=== PATIENT | female | born 1990 | race Caucasian/White ===

== ENCOUNTER 2018-07-13 12:25 | Emergency (ER) | payer OTHER ==
--- NOTE | 2018-07-13 12:49 | ER Document Report ---
ED Medical Screen (RME) - General Chief Complaint: Numbness Stated Complaint: DIZZINESS,NUMBNESS IN HEAD AND SHOULDERS Time Seen by Provider: 07/13/18 12:44 Mode of Arrival: Ambulatory Information source: Patient, [facility] Records Notes: 28-year-old female presents with complaint of dizziness, bilateral hand numbness. Patient was seen at urgent care and told that she had an abnormal EKG. She was also started told that there was concern for hyperkalemia. I have greeted and performed a rapid initial assessment of this patient. A comprehensive ED assessment and evaluation of the patient, analysis of test results and completion of medical decision making process we will be contacted by additional ED providers. PHYSICAL EXAMINATION: Vital signs reviewed GENERAL: Well-appearing, well-nourished and in no acute distress. LUNGS: No respiratory distress Musculoskeletal: Normal range of motion NEUROLOGICAL: Normal speech, normal gait. Cranial nerves II through XII intact PSYCH: Normal mood, normal affect. SKIN: Warm, Dry, normal turgor, no rashes or lesions noted. TRAVEL OUTSIDE OF THE [place] IN LAST 30 DAYS: No - HPI Onset: Other Quality of pain: No pain Associated Symptoms: Dizzy/lightheaded Exacerbated by: Denies Relieved by: Denies Similar symptoms previously: Yes Recently seen / treated by doctor: Yes - Related Data Smoking: Non-smoker Frequency of alcohol use: None Drug Abuse: None Allergies/Adverse Reactions: amoxicillin [Amoxicillin] Allergy (Mild, Verified 01/23/15 00:52) Rash Physical Exam - Vital signs Vitals: Temp Pulse Resp BP Pulse Ox 98.6 F 92 18 138/90 H 99 07/13/18 12:36 07/13/18 12:36 07/13/18 12:36 07/13/18 12:36 07/13/18 12:36 Course - Vital Signs Vital signs: Temp Pulse Resp BP Pulse Ox 98.6 F 92 18 138/90 H 99 07/13/18 12:36 07/13/18 12:36 07/13/18 12:36 07/13/18 12:36 07/13/18 12:36 Doctor's Discharge - Discharge Referrals: VICTOR HUGO CRUZ DO [Primary Care Provider] - Follow up as needed
[2018-07-13 13:28] LABS: ABSOLUTE LYMPHOCYTES (AUTO) 1.8 10^3/uL (0.5-4.7); ABSOLUTE MONOCYTES (AUTO) 0.5 10^3/uL (0.1-1.4); ABSOLUTE NEUT (AUTO) 4.4 10^3/uL (1.7-8.2); BASOPHILS % (AUTO) 0.5 % (0-2); EOSINOPHILS % (AUTO) 0.6 % (0-6); HEMATOCRIT 46.8 % (36.0-47.0); HEMOGLOBIN 16.2 g/dL (12.0-15.5); LYMPHOCYTES % (AUTO) 26.5 % (13-45); MEAN CORPUSCULAR HEMOGLOBIN 32.8 pg (27.0-33.4); MEAN CORPUSCULAR HGB CONC 34.7 g/dL (32.0-36.0); MEAN CORPUSCULAR VOLUME 95 fl (80-97); PLATELET COUNT 219 10^3/uL (150-450); RED BLOOD COUNT 4.95 10^6/uL (3.72-5.28); RED CELL DISTRIBUTION WIDTH 11.6 % (11.5-14.0); SEGMENTED NEUTROPHILS % (AUTO) 64.4 % (42-78); TOTAL CELLS COUNTED % (AUTO) 100 %; WHITE BLOOD COUNT 6.8 10^3/uL (4.0-10.5)
[2018-07-13 13:47] LABS: ALANINE AMINOTRANSFERASE 13 U/L (9-52); ALBUMIN 5.2 g/dL (3.5-5.0); ALKALINE PHOSPHATASE 70 U/L (38-126); ANION GAP 10 (5-19); ASPARTATE AMINO TRANSFERASE 24 U/L (14-36); BILIRUBIN,DIRECT 0.2 mg/dL (0.0-0.4); BILIRUBIN,TOTAL 1.1 mg/dL (0.2-1.3); BLOOD UREA NITROGEN 10 mg/dL (7-20); CALCIUM 10.8 mg/dL (8.4-10.2); CARBON DIOXIDE 27 mmol/L (22-30); CHLORIDE 103 mmol/L (98-107); GLUCOSE 117 mg/dL (75-110); POTASSIUM 4.2 mmol/L (3.6-5.0); SODIUM 139.8 mmol/L (137-145); TOTAL PROTEIN 8.7 g/dL (6.3-8.2)
[2018-07-13] MEDS ORDERED: DIPHENHYDRAMINE HCL 50 MG/ML VIAL IV ONE (13:50)
[2018-07-13] MEDS ORDERED: METOCLOPRAMIDE HCL INJ/PF 10 MG/2 ML SDV IV ONE (13:50)
[2018-07-13] MEDS ORDERED: KETOROLAC TROMETHAMINE INJ/PF 30 MG/1 ML SDV IV ONE (13:51)
[2018-07-13 14:43] LABS: FREE T3 3.4 pg/mL (2.77-5.27)
[2018-07-13 14:44] LABS: FREE T4 (FREE THYROXINE) 1.04 ng/dL (0.78-2.19)
[2018-07-13 14:57] LABS: THYROID STIMULATING HORMONE 1.14 uIU/mL (0.47-4.68)
--- NOTE | 2018-07-13 15:10 | RADIOLOGY REPORT (SQ) ---
EXAM DESCRIPTION: MRI HEAD WITHOUT COMPLETED DATE/TIME: 07/13/2018 2:51 pm REASON FOR STUDY: Numbness bilateral hands and shoulders on and off for 3 months, worse today. Dizziness, lightheadedness. COMPARISON: None. TECHNIQUE: Multiplanar imaging includes non-contrasted T1, T2, FLAIR, and diffusion with ADC map seq uences. Images stored on PACS. LIMITATIONS: None. FINDINGS: ANATOMY: Normal vascular flow voids. Pituitary fossa normal. CSF SPACES: Normal in size and contour. No hemorrhage. CEREBRUM: Sulci and gyri normal in size and contour. Normal white matter signal on FLAIR imaging. No evidence of hemorrhage, mass effect or extraaxial fluid collection. POSTERIOR FOSSA: No signal alteration. No hemorrhage. No edema or mass effect. Internal auditory can als, cerebello-pontine angles, mastoids normal. DIFFUSION IMAGING: Negative for acute or sub-acute infarction. ORBITS: Symmetrical globes. PARANASAL SINUSES: No fluid levels. IMPRESSION: NORMAL MRI OF THE BRAIN WITHOUT INTRAVENOUS GADOLINIUM CONTRAST. EVIDENCE OF ACUTE STROKE: NO. TECHNICAL DOCUMENTATION: JOB ID: [id number] [employer]- All Rights Reserved Reading location - IP/workstation name: [email or web address]
[2018-07-13 16:45] VITALS: BP 118/68
--- NOTE | 2018-07-13 17:40 | ER Document Report ---
ED General - General Chief Complaint: Numbness Stated Complaint: DIZZINESS,NUMBNESS IN HEAD AND SHOULDERS Time Seen by Provider: 07/13/18 12:44 Mode of Arrival: Ambulatory Information source: Patient Notes: This is a 28-year-old female with a history of hypothyroidism who presents to the emergency room headache, sense of dizziness and pressure-like sensation around her forehead. Patient has intermittent diarrhea. She denies any fever, photophobia, neck stiffness. She does have some concerns for fungal infections. She has been evaluated by her collections and archives director (Dr Shaffer) who stopped her thyroid medicine 1 week ago because of the symptoms. She does have a primary care doctor (Yoil Poon in [facility]) and she has been evaluated by a can washer as well. She is been told that she is got a marker for scleroderma. She reports that she tested negative for lupus or rheumatoid. She does state that feels like her jaw is stiff at times. She does have history of having surgery on the jaw. She denies any diplopia. She denies any gait imbalance. She denies any vertigo. Denies any visual acuity deficits. Patient first started having these symptoms 4 months ago and states that it seems to be worse lately. TRAVEL OUTSIDE OF THE [place] IN LAST 30 DAYS: No - HPI Onset: Other - Last 4 months Onset/Duration: Gradual Quality of pain: Dull Severity: Moderate Pain Level: 2 - Headache Associated symptoms: denies: Chest pain, Fever, Shortness of breath Exacerbated by: Denies Relieved by: Denies Similar symptoms previously: Yes Recently seen / treated by doctor: Yes - Related Data Allergies/Adverse Reactions: amoxicillin [Amoxicillin] Allergy (Mild, Verified 01/23/15 00:52) Rash Past Medical History - General Information source: Patient, [facility] Records - Social History Smoking Status: Never Smoker Cigarette use (# per day): No Chew tobacco use (# tins/day): No Frequency of alcohol use: None Drug Abuse: None Lives with: Spouse/Significant other Family History: None Patient has suicidal ideation: No Patient has homicidal ideation: No - Past Medical History Cardiac Medical History: Reports: None EENT Medical History: Reports: None Neurological Medical History: Reports: None Endocrine Medical History: Reports: Hx Hypothyroidism Renal/ Medical History: Reports: None. Denies: Hx Peritoneal Dialysis Malignancy Medical History: Reports: None GI Medical History: Reports: None Musculoskeletal Medical History: Reports None Skin Medical History: Reports None Psychiatric Medical History: Reports: None Traumatic Medical History: Reports: None Infectious Medical History: Reports: None Surgical Hx: Negative Review of Systems - Review of Systems Constitutional: denies: Chills, Fever EENT: No symptoms reported Cardiovascular: No symptoms reported Respiratory: No symptoms reported Gastrointestinal: No symptoms reported Genitourinary: No symptoms reported Female Genitourinary: No symptoms reported Musculoskeletal: No symptoms reported Skin: No symptoms reported Hematologic/Lymphatic: No symptoms reported Neurological/Psychological: See HPI Physical Exam - Vital signs Vitals: Temp Pulse Resp BP Pulse Ox 98.6 F 92 18 138/90 H 99 07/13/18 12:36 07/13/18 12:36 07/13/18 12:36 07/13/18 12:36 07/13/18 12:36 Notes: Physical exam: GENERAL: She is alert and oriented x3, no acute distress. He does appear somewhat anxious. But otherwise she is mentating appropriately. HEAD: Atraumatic, normocephalic. EYES: Pupils equal round and reactive to light, extraocular movements intact, sclera anicteric, conjunctiva are normal. ENT: TMs normal, nares patent, oropharynx clear without exudates. Moist mucous membranes. NECK: Normal range of motion, supple without obvious mass LUNGS: Breath sounds clear to auscultation bilaterally and equal. No wheezes rales or rhonchi. HEART: Regular rate and rhythm without murmurs, rubs or gallops. ABDOMEN: Soft, normoactive bowel sounds. No tenderness to palpation. No guarding, no rebound. No masses appreciated. EXTREMITIES: Normal range of motion, no pitting or edema. No clubbing or cyanosis. NEUROLOGICAL: Cranial nerves II through XII grossly intact. Visual zamorano are good. Motor exam is 5/5 and is symmetrical upper and lower, sensory grossly intact, cerebellar (finger to nose) is perfect. Romberg negative. Normal speech. PSYCH: Normal mood, normal affect. SKIN: Warm, Dry, normal turgor, no rashes or lesions noted. Course - Re-evaluation Re-evalutation: 07/13/18 19:21 I had a long conversation with the patient and her significant other. She was given some IV Reglan, Benadryl and Toradol and did get significant relief. She has significant confirmed concerns for fungal meningitis, however she has no clinical findings suggestive of meningitis (fungal or otherwise). She has seen her collections and archives director and her can washer. Her neurologic exam is normal right now and her MRI of looks quite good. Her labs look good. I have tried to reassure her given how good her neurologic exam is today. I will give her the number of a neurologist affiliated at [facility] and I have given her a copy of the labs, MRI report as well as the MRI on disc. - Vital Signs Vital signs: Temp Pulse Resp BP Pulse Ox 98.1 F 81 18 118/68 99 07/13/18 16:44 07/13/18 16:44 07/13/18 16:44 07/13/18 16:44 07/13/18 16:44 - Laboratory Result Diagrams: 07/13/18 12:56 07/13/18 12:56 Laboratory results interpreted by me: 07/13/18 07/13/18 12:56 12:56 Hgb 16.2 H Glucose 117 H Calcium 10.8 H Total Protein 8.7 H Albumin 5.2 H - Diagnostic Test Radiology reviewed: Image reviewed, Reports reviewed - MRI shows no intracranial pathology Discharge - Discharge Clinical Impression: Numbness, Headache Condition: Stable Disposition: HOME, SELF-CARE Additional Instructions: As we discussed, your white blood count was normal. Your potassium level, kidney tests and other electrolytes were normal. The MRI of the brain showed no mass lesions or abnormalities. The next step for both the headache and the numbness would be to follow-up with a neurologist. Recommend calling the neurologist at [facility]: [phone] Bring a copy of today's report, lab results as well as the MRI disc with you when you go for evaluation. Would like you to follow-up with your primary care provider as well as collections and archives director. Return to the ER for worsening headache, worsening numbness or any concerns or getting worse. Prescriptions: Metoclopramide HCl [Reglan 10 mg Tablet] 1 - 2 tab PO ASDIR PRN #25 tablet PRN Reason: Referrals: VICTOR HUGO CRUZ DO [Primary Care Provider] - Follow up as needed
--- NOTE | 2018-07-14 00:55 | EKG REPORT ---
SEVERITY:- OTHERWISE NORMAL ECG - SINUS TACHYCARDIA : Confirmed by: Mary Guzman MD 14-Jul-2018 00:54:36
== END 2018-07-13 18:05 | disposition home or self-care (01) ==
LOC: ER 12:25
DX: R20.0 Anesthesia of skin (principal); R51 Headache; R42 Dizziness and giddiness; R19.7 Diarrhea, unspecified; E03.9 Hypothyroidism, unspecified; Z88.0 Allergy status to penicillin
CPT/HCPCS: 93005; 99284; 96374; 36415; 84439; 83735; 84443; 85025; 80053; 84481; 70551; 93010; J1200; J1885; J2765

== ENCOUNTER 2018-07-16 10:59 | Emergency (ER) | payer OTHER ==
--- NOTE | 2018-07-16 11:53 | ER Document Report ---
ED Medical Screen (RME) - General Chief Complaint: Numbness Stated Complaint: NUMBNESS IN CHEST Time Seen by Provider: 07/16/18 11:39 TRAVEL OUTSIDE OF THE [place] IN LAST 30 DAYS: No - HPI Notes: 07/16/18 11:52 Patient is a 28-year-old female that presents to the emergency department for chief complaint of headache and numbness. Over the last week or so patient has had increasing headaches and numbness. She was seen here on Saturday and had a negative MRI of her brain. Since then she has had progression of her numbness down into her left chest and breast area. ROS: GENERAL: Denies fever of chills CV: Denies chest pain Neurovascular: Headache, numbness PHYSICAL EXAMINATION: GENERAL: Well-appearing, well-nourished and in no acute distress. HEAD: Atraumatic, normocephalic. EYES: Pupils equal round extraocular movements intact, conjunctiva are normal. ENT: Nares patent NECK: Normal range of motion LUNGS: No respiratory distress Musculoskeletal: Normal range of motion NEUROLOGICAL: Normal speech, normal gait. PSYCH: Normal mood, normal affect. MDM: Patient seen and examined for rapid initial assessment. Vital signs reviewed. A comprehensive ED assessment and evaluation of the patient, analysis of test results and completion of the medical decision making process will be conducted by additional ED providers. - Related Data Allergies/Adverse Reactions: amoxicillin [Amoxicillin] Allergy (Mild, Verified 07/16/18 11:01) Rash Past Medical History Endocrine Medical History: Reports: Hx Hypothyroidism Renal/ Medical History: Denies: Hx Peritoneal Dialysis Physical Exam - Vital signs Vitals: Temp Pulse Resp BP Pulse Ox 98.8 F 83 16 127/86 H 93 07/16/18 11:07 07/16/18 11:07 07/16/18 11:07 07/16/18 11:07 07/16/18 11:07 Course - Vital Signs Vital signs: Temp Pulse Resp BP Pulse Ox 98.8 F 83 16 127/86 H 93 07/16/18 11:07 07/16/18 11:07 07/16/18 11:07 07/16/18 11:07 07/16/18 11:07 Doctor's Discharge - Discharge Referrals: VICTOR HUGO CRUZ DO [Primary Care Provider] - Follow up as needed
[2018-07-16 12:10] LABS: ABSOLUTE EOSINOPHILS # (AUTO) 0.1 10^3/uL (0.0-0.6); ABSOLUTE LYMPHOCYTES (AUTO) 1.3 10^3/uL (0.5-4.7); ABSOLUTE MONOCYTES (AUTO) 0.4 10^3/uL (0.1-1.4); ABSOLUTE NEUT (AUTO) 2.7 10^3/uL (1.7-8.2); BASOPHILS % (AUTO) 0.7 % (0-2); EOSINOPHILS % (AUTO) 1.8 % (0-6); HEMATOCRIT 42.6 % (36.0-47.0); HEMOGLOBIN 14.9 g/dL (12.0-15.5); LYMPHOCYTES % (AUTO) 28.5 % (13-45); MEAN CORPUSCULAR HEMOGLOBIN 33.1 pg (27.0-33.4); MEAN CORPUSCULAR VOLUME 95 fl (80-97); MONOCYTES % (AUTO) 8.3 % (3-13); PLATELET COUNT 198 10^3/uL (150-450); RED CELL DISTRIBUTION WIDTH 11.5 % (11.5-14.0); SEGMENTED NEUTROPHILS % (AUTO) 60.7 % (42-78); TOTAL CELLS COUNTED % (AUTO) 100 %; WHITE BLOOD COUNT 4.4 10^3/uL (4.0-10.5)
[2018-07-16 12:28] LABS: ANION GAP 8 (5-19); BLOOD UREA NITROGEN 13 mg/dL (7-20); CALCIUM 9.6 mg/dL (8.4-10.2); CARBON DIOXIDE 27 mmol/L (22-30); CHLORIDE 105 mmol/L (98-107); GLUCOSE 100 mg/dL (75-110); POTASSIUM 4.3 mmol/L (3.6-5.0); SODIUM 140.3 mmol/L (137-145)
[2018-07-16] MEDS ORDERED: METAXALONE 800 MG TABLET PO ONE (13:13)
--- NOTE | 2018-07-16 14:52 | ER Document Report ---
ED General - General Chief Complaint: Numbness Stated Complaint: NUMBNESS IN CHEST Time Seen by Provider: 07/16/18 11:39 Mode of Arrival: Ambulatory Information source: Patient Notes: Patient presents complaining of left occipital headache that goes into the left side of neck and left upper back area. Patient also complains of numbness only involving the left breast. Patient denies any recent trauma or fever. Patient states that she had been evaluated here 4 days ago and had MRI imaging and was given a prescription for Reglan. Patient states that she did not feel the Reglan helped her headache symptoms so has not gotten this medication filled and has not taken it as prescribed. Patient states that she was advised to follow- up with a neurologist although when she called the neurology office they said that they needed a referral from her primary doctor. Patient states that she did follow-up with her primary doctor yesterday and was given a Toradol shot and a prescription for headache medication that she is yet to fill. Patient states that when she informed her primary doctor about her breast numbness they advised her to come here for further evaluation. Patient denies any significant headache at this time, patient denies fever or recent illness. Patient does report having breast augmentation surgery this year and initially had numbness to the breast but that resolved within days after the procedure. Patient states that she does work out almost daily doing [employer] and is uncertain if maybe her neck and upper shoulder pain may be attributed to a musculoskeletal problem. Patient denies any chest pain or shortness of breath cough or cold symptoms. Review of patient's previous record does demonstrate she had a normal head MRI performed 3 days ago. Patient reports headache and numbness have been off and on but the symptoms restarted yesterday. TRAVEL OUTSIDE OF THE [place] IN LAST 30 DAYS: No - HPI Onset: Yesterday Onset/Duration: Persistent Quality of pain: Achy Pain Level: 3 Associated symptoms: Other - Left breast numbness, left lateral side neck and upper back pain. denies: Chest pain, Nonproductive cough, Productive cough, Diarrhea, Fever, Nausea, Vomiting, Shortness of breath Exacerbated by: Denies Relieved by: Denies Similar symptoms previously: No Recently seen / treated by doctor: Yes - Related Data Allergies/Adverse Reactions: amoxicillin [Amoxicillin] Allergy (Mild, Verified 07/16/18 11:01) Rash Past Medical History - General Information source: Patient - Social History Smoking Status: Never Smoker Chew tobacco use (# tins/day): No Frequency of alcohol use: None Drug Abuse: None Occupation: School system Family History: None Patient has suicidal ideation: No Patient has homicidal ideation: No Endocrine Medical History: Reports: Hx Hypothyroidism Renal/ Medical History: Denies: Hx Peritoneal Dialysis Past Surgical History: Reports: Hx Breast Surgery, Hx Kidney (Renal Surgery), Hx Orthopedic Surgery - Jaw, Hx Tonsillectomy Review of Systems - Review of Systems Constitutional: No symptoms reported. denies: Chills, Fever, Recent illness EENT: No symptoms reported Cardiovascular: No symptoms reported. denies: Chest pain Respiratory: No symptoms reported. denies: Cough, Short of breath Gastrointestinal: No symptoms reported. denies: Abdominal pain, Diarrhea, Nausea, Vomiting Genitourinary: No symptoms reported. denies: Dysuria Female Genitourinary: No symptoms reported. denies: Musculoskeletal: Back pain, Neck pain Skin: No symptoms reported. denies: Rash Hematologic/Lymphatic: No symptoms reported Neurological/Psychological: Headaches - Left occipital, Numbness - Left breast. denies: Weakness, Loss of power, Paralysis Physical Exam - Vital signs Vitals: Temp Pulse Resp BP Pulse Ox 98.8 F 83 16 127/86 H 93 07/16/18 11:07 07/16/18 11:07 07/16/18 11:07 07/16/18 11:07 07/16/18 11:07 - General General appearance: Appears well, Alert General appearance pediatric: Attentiveness normal In distress: None - HEENT Head: Normocephalic, Atraumatic Eyes: Normal Conjunctiva: Normal Extraocular movements intact: Yes Eyelashes: Normal Pupils: PERRL Ears: Normal External canal: Normal Nasal: Normal Mouth/Lips: Normal Mucous membranes: Normal Neck: Supple, Other - Left sternocleidomastoid tenderness, left trapezius muscle tenderness, cervical midline tenderness C4 through 7 area, no step-off or deformity. No: Lymphadenopathy, Meningismus - Respiratory Respiratory status: No respiratory distress Chest status: Nontender Breath sounds: Normal Chest palpation: Normal. No: Wounds - Cardiovascular Rhythm: Regular Heart sounds: S1 appreciated, S2 appreciated Murmur: No Pulses: Normal: Radial - Abdominal Inspection: Normal Distension: No distension Bowel sounds: Normal Tenderness: Nontender - Back Back: Tender - Left upper thoracic paraspinal tenderness, tenderness to area just superior of left scapula. No: Vertebra tenderness - Extremities General upper extremity: Normal inspection, Nontender, Normal color, Normal ROM, Normal strength, Normal temperature. No: Tender, Edema General lower extremity: Normal inspection, Nontender, Normal strength - Neurological Neuro grossly intact: Yes Cognition: Normal Orientation: AAOx4 [place] Coma Scale Eye Opening: Spontaneous [place] Coma Scale Verbal: Oriented [place] Coma Scale Motor: Obeys Commands Speech: Normal. No: Dysarthria Cranial nerves: Normal Cerebellar coordination: Normal Motor strength normal: LUE, RUE, LLE, RLE Additional motor exam normals: Equal channel layer. No: Weakness Sensory: Altered light touch - Altered light touch sensation involving the left breast only - Psychological Associated symptoms: Normal affect, Normal mood - Skin Skin Temperature: Warm Skin Moisture: Dry Skin Color: Normal Course - Re-evaluation Re-evalutation: 07/16/18 13:[address] Naylor regarding patient's diagnostic evaluation, Dr. Naylor recommends consultation with radiologist 07/16/18 13:15 Consulted with radiologist regarding patient's diagnostic evaluation, discussed her history as well as presentation of symptoms. We will plan to add on CT imaging of the cervical spine and T-spine given patient's level of paresthesia. 07/16/18 15:30 PACS system is down, spoke with [facility] radiology and was given a verbal oral preliminary report noting a C5 through 6 disc bulge. 07/16/18 16:03 Discussed plan of care with patient, patient encouraged to follow-up with orthopedic spine specialty for further evaluation of herniated disc. Patient also encouraged to keep referral for neurology for further evaluation of numbness to the left breast area. Patient encouraged to follow-up with her plastic surgeon just to confirm that her breast numbness may not be a complication from her procedure. Patient with good strength and muscle tone to bilateral upper extremities 5/5. Patient without any paresthesia to the left upper extremity. - Vital Signs Vital signs: Temp Pulse Resp BP Pulse Ox 98.8 F 91 17 127/73 H 98 07/16/18 16:21 07/16/18 16:21 07/16/18 16:21 07/16/18 16:21 07/16/18 16:21 - Laboratory Result Diagrams: 07/16/18 11:59 07/16/18 11:59 Laboratory results interpreted by me: Labs- Entire Visit 07/16/18 07/16/18 11:59 11:59 WBC 4.4 RBC 4.50 Hgb 14.9 Hct 42.6 MCV 95 MCH 33.1 MCHC 35.0 RDW 11.5 Plt Count 198 Seg Neutrophils % 60.7 Lymphocytes % 28.5 Monocytes % 8.3 Eosinophils % 1.8 Basophils % 0.7 Absolute Neutrophils 2.7 Absolute Lymphocytes 1.3 Absolute Monocytes 0.4 Absolute Eosinophils 0.1 Absolute Basophils 0.0 Sodium 140.3 Potassium 4.3 Chloride 105 Carbon Dioxide 27 Anion Gap 8 BUN 13 Creatinine 0.87 Est GFR ( Amer) > 60 Est GFR (Non-Af Amer) > 60 Glucose 100 Calcium 9.6 Magnesium 2.2 - Diagnostic Test Radiology reviewed: Reports reviewed Discharge - Discharge Clinical Impression: Neck pain, Bulging of cervical intervertebral disc, Paresthesia Condition: Stable Disposition: HOME, SELF-CARE Instructions: Herniated Disc ([facility]), Oral Narcotic Medication ([facility]), Steroid Medication Additional Instructions: Return immediately for any new or worsening symptoms Followup with your primary care provider, call tomorrow to make a followup appointment Follow-up with your plastic surgeon as well as neurology for further evaluation of numbness to the left breast area. Follow-up with orthopedics for further evaluation of cervical herniated disc. Prescriptions: Oxycodone HCl/Acetaminophen [Percocet 5-325 mg Tablet] 1 tab PO ASDIR PRN #15 tablet PRN Reason: Prednisone [Deltasone 20 mg Tablet] 3 tab PO DAILY 5 Days tablet Referrals: LINDA FABIAN MD [ASSOCIATE] - Follow up in 3-5 days [facility] [Provider Group] - Follow up tomorrow
--- NOTE | 2018-07-16 15:51 | RADIOLOGY REPORT (SQ) ---
EXAM DESCRIPTION: CT CERVICAL SPINE WITHOUT COMPLETED DATE/TIME: 07/16/2018 1:14 pm REASON FOR STUDY: neck pain, L breast numbness COMPARISON: None. TECHNIQUE: Axial images acquired through the cervical spine without intravenous contrast. Images re viewed with lung, soft tissue and bone windows. Reconstructed coronal and sagittal MPR images review ed. Images stored on PACS. All CT scanners at this facility use dose modulation, iterative reconstruction, and/or weight based d osing when appropriate to reduce radiation dose to as low as reasonably achievable (ALARA). [facility]: Dose Right [facility]: CareDose [facility]: Dose Right [facility]: Teradose 4D [facility]: K[employer]fix RADIATION DOSE: 336 mGy cm LIMITATIONS: None. FINDINGS: ALIGNMENT: There is straightening and focal reversal of the normal cervical lordosis at C5 -C6. MINERALIZATION: Normal. VERTEBRAL BODIES: No fractures or dislocation. DISCS: Probable small central posterior disc bulge at C5-C6. FACETS, LATERAL MASSES, POSTERIOR ELEMENTS: No fractures. No dislocation. No acute findings. HARDWARE: None in the spine. VISUALIZED RIBS: No fractures. LUNG APICES AND SOFT TISSUES: No significant or acute findings. OTHER: No other significant finding. IMPRESSION: There is straightening and focal reversal the normal cervical lordosis at C5-C6, which m ay be degenerative in nature and related to disc disease. There is a probable small central disc bul ge at this level on CT, which is limited in sensitivity, and no fracture or static subluxation of the cervical spine. Consider MRI to further evaluate cervical disc and neural foraminal pathology if in dicated by localizing signs and symptoms. TECHNICAL DOCUMENTATION: JOB ID: [id number] Quality ID # [id number]: Final reports with documentation of one or more dose reduction techniques (e.g., Au tomated exposure control, adjustment of the mA and/or kV according to patient size, use of iterative reconstruction technique) 2010 [employer]- All Rights Reserved Reading location - IP/workstation name: [email or web address]
--- NOTE | 2018-07-16 15:51 | RADIOLOGY REPORT (SQ) ---
EXAM DESCRIPTION: CT THORACIC SPINE WITHOUT COMPLETED DATE/TIME: 07/16/2018 1:14 pm REASON FOR STUDY: neck pain, L breast numbness COMPARISON: None. TECHNIQUE: Axial images acquired through the thoracic spine without intravenous contrast. Images re viewed with lung, soft tissue and bone windows. Reconstructed coronal and sagittal MPR images review ed. Images stored on PACS. All CT scanners at this facility use dose modulation, iterative reconstruction, and/or weight based d osing when appropriate to reduce radiation dose to as low as reasonably achievable (ALARA). [facility]: Dose Right [facility]: CareDose [facility]: Dose Right [facility]: Teradose 4D [facility]: VeraLight RADIATION DOSE: 3428 mGy cm LIMITATIONS: None. FINDINGS: VISUALIZED LUNGS: No acute opacities. No pneumothorax. SOFT TISSUES: No soft tissue swelling. No masses. VERTEBRAL BODIES: No fractures. No dislocation. No acute findings. DISCS: No significant disc space narrowing. ALIGNMENT: Normal. TRANSVERSE PROCESSES, POSTERIOR ELEMENTS: No fractures. No dislocation. No acute findings. HARDWARE: None in the spine. VISUALIZED RIBS: No fractures. OTHER: No other significant finding. IMPRESSION: Normal CT examination of the thoracic spine. No CT findings to explain left breast numb ness. MRI may be used to further evaluate thoracic canal and neural foraminal pathology if indicated by localizing signs and symptoms. TECHNICAL DOCUMENTATION: JOB ID: [id number] Quality ID # 436: Final reports with documentation of one or more dose reduction techniques (e.g., Au tomated exposure control, adjustment of the mA and/or kV according to patient size, use of iterative reconstruction technique) 2010 [employer]- All Rights Reserved Reading location - IP/workstation name: [email or web address]
[2018-07-16 16:23] VITALS: BP 127/73
== END 2018-07-16 16:22 | disposition home or self-care (01) ==
LOC: ER 10:59
DX: M50.80 Other cervical disc disorders, unspecified cervical region (principal); R51 Headache; T45.0X6A Underdosing of antiallergic and antiemetic drugs, initial encounter; Z91.128 Patient's intentional underdosing of medication regimen for other reason; Z91.14 Patient's other noncompliance with medication regimen; R20.0 Anesthesia of skin; M54.89 Other dorsalgia; Z98.890 Other specified postprocedural states; Z88.0 Allergy status to penicillin
CPT/HCPCS: 99284; 36415; 83735; 85025; 80048; 72125; 72128; J3490

== ENCOUNTER → 2018-09-22 | Outpatient (CLI) | payer BC, OTHER | LOC: OD 17:09 | PROVIDERS: ATTEND Otolaryngology | DX: J30.9 Allergic rhinitis, unspecified (principal) | CPT/HCPCS: 36415; 82785; 86003 ==

== ENCOUNTER → 2018-11-19 | Day surgery (SDC) | payer OTHER ==
[2018-11-19 11:29] LABS: INTERNATIONAL RATION (INR) 0.94
[2018-11-19 11:30] LABS: PARTIAL THROMBOPLASTIN TIME 26.8 SEC (23.5-35.8)
[2018-11-19 14:26] LABS: GLUCOSE,CSF 52 mg/dL (40-70); PROTEIN,CSF 36 mg/dL (12-60)
[2018-11-19 15:00] LABS: CSF TUBE NUMBER 1
[2018-11-19 15:01] LABS: APPEARANCE ALL TUBES CLEAR; COLOR ALL TUBES COLORLESS; CSF TOTAL VOLUME 12.5 CC; RED BLOOD CELL,CSF 7 /uL (0-10); VOLUME TUBE 4 3.5 CC
[2018-11-19 15:03] LABS: WHITE BLOOD CELL,CSF 2 /uL (0-5)
[2018-11-19 15:05] VITALS: BP 105/72
--- NOTE | 2018-11-19 16:02 | RADIOLOGY REPORT (SQ) ---
EXAM DESCRIPTION: LUMBAR PUNCTURE; FLUORO/NEEDLE PLACEMENT/SPINE COMPLETED DATE/TIME: 11/19/2018 2:23 pm REASON FOR STUDY: SYPHYLIS A53.9 SYPHILIS, UNSPECIFIED COMPARISON: None. FLUOROSCOPY TIME: 2 seconds 1 digital fluoroscopic image saved to PACS. TECHNIQUE: Fluoroscopic guided lumbar puncture. LIMITATIONS: None. PROCEDURE: After written consent and assessment were obtained, the patient was brought into the fluo roscopy room and placed prone on the table. The patient's lower back was prepped in a sterile fashio n and an entry site was selected under live fluoroscopic guidance. The entry site was anesthetized wi th 1% lidocaine. A 22 gauge needle was advanced through the skin and into the thecal sac at the left paracentral L2-3 level. After approximately 12.5 ml was drained, the needle was removed and a steril e bandage was placed of the site. Specimens were sent to the lab for testing. A fluoroscopic spot i mage was saved to PACS confirming level access. FINDINGS: Clear CSF, opening pressure 27 cm water. CSF studies are pending IMPRESSION: Lumbar puncture under fluoroscopy. No immediate complication. COMMENT: Patient medication list reviewed: Yes- Quality ID# 130:Eligible professional attests to doc umenting in the medical record they obtained, updated, or reviewed the patient's current medications. . Quality ID 145: Final reports for procedures using fluoroscopy that document radiation exposure augie lobo, or exposure time and number of fluorographic images (if radiation exposure indices are not avail able) TECHNICAL DOCUMENTATION: JOB ID: [id number] [employer]- All Rights Reserved Reading location - IP/workstation name: [email or web address]
== END ==
LOC: RAD 10:50
PROVIDERS: ATTEND Internal Medicine Infectious Disease
DX: A52.3 Neurosyphilis, unspecified (principal); R30.0 Dysuria; A53.9 Syphilis, unspecified; Z88.5 Allergy status to narcotic agent; E03.9 Hypothyroidism, unspecified
CPT/HCPCS: 36415; 62270; 77003; 82945; 83916; 84157; 85610; 85730; 86592; 87070; 87205; 89050

== ENCOUNTER 2019-01-14 08:24 | Observation (INO) | payer OTHER ==
--- NOTE | 2019-01-14 09:16 | ER Document Report ---
ED Medical Screen (RME) - General Chief Complaint: Other Stated Complaint: HEAD PRESSURE Time Seen by Provider: 01/14/19 09:10 Primary Care Provider: RACHEAL PALOMO MD [Primary Care Provider] - Follow up as needed Mode of Arrival: Ambulatory Information source: Patient Notes: This is a 28-year-old female presented to the emergency department with request for initiation of IV penicillin treatments. Patient reports she is seen at [facility] and was diagnosed with neurosyphilis. She states that she does have an amoxicillin allergy however they want her to be started on IV penicillin. She comes with paperwork in hand from both her primary care as well as [facility]. She has no acute complaints today. Exam: Patient alert, oriented and answering all questions appropriately. No focal neurological deficits noted. I have greeted and performed a rapid initial assessment of this patient. A comprehensive ED assessment and evaluation of the patient, analysis of test results and completion of the medical decision making process will be conducted by additional ED providers. Dictation of this chart was performed using voice recognition software; therefore, there may be some unintended grammatical errors. TRAVEL OUTSIDE OF THE [place] IN LAST 30 DAYS: No - Related Data Allergies/Adverse Reactions: amoxicillin [Amoxicillin] Allergy (Mild, Verified 01/14/19 09:03) Rash Past Medical History - Past Medical History Cardiac Medical History: Denies: Hx Coronary Artery Disease, Hx Heart Attack, Hx Hypertension Pulmonary Medical History: Denies: Hx Asthma, Hx Bronchitis, Hx COPD, Hx Pneumonia Neurological Medical History: Denies: Hx Cerebrovascular Accident, Hx Seizures Endocrine Medical History: Reports: Hx Hypothyroidism Renal/ Medical History: Denies: Hx Peritoneal Dialysis Musculoskeltal Medical History: Denies Hx Arthritis Past Surgical History: Reports: Hx Breast Surgery, Hx Kidney (Renal Surgery), Hx Orthopedic Surgery - Jaw, Hx Tonsillectomy - Immunizations Hx Diphtheria, Pertussis, Tetanus Vaccination: Yes History of Influenza Vaccine for 04/2017 - 09/2017 Season: Yes Influenza Administration Date for 04/2017 - 09/2017 Season: 04/28/19 Physical Exam - Vital signs Vitals: Temp Pulse Resp BP Pulse Ox 98.5 F 93 18 129/84 H 98 01/14/19 08:33 01/14/19 08:33 01/14/19 08:33 01/14/19 08:33 01/14/19 08:33 Course - Vital Signs Vital signs: Temp Pulse Resp BP Pulse Ox 98.5 F 93 18 129/84 H 98 01/14/19 08:33 01/14/19 08:33 01/14/19 08:33 01/14/19 08:33 01/14/19 08:33 Doctor's Discharge - Discharge Referrals: RACHEAL PALOMO MD [Primary Care Provider] - Follow up as needed
[2019-01-14 13:40] LABS: ABSOLUTE EOSINOPHILS # (AUTO) 0.1 10^3/uL (0.0-0.6); ABSOLUTE LYMPHOCYTES (AUTO) 1.4 10^3/uL (0.5-4.7); ABSOLUTE MONOCYTES (AUTO) 0.5 10^3/uL (0.1-1.4); ABSOLUTE NEUT (AUTO) 6.4 10^3/uL (1.7-8.2); BASOPHILS % (AUTO) 0.4 % (0-2); EOSINOPHILS % (AUTO) 0.9 % (0-6); HEMATOCRIT 42.9 % (36.0-47.0); HEMOGLOBIN 14.8 g/dL (12.0-15.5); LYMPHOCYTES % (AUTO) 16.6 % (13-45); MEAN CORPUSCULAR HEMOGLOBIN 32.4 pg (27.0-33.4); MEAN CORPUSCULAR HGB CONC 34.5 g/dL (32.0-36.0); MEAN CORPUSCULAR VOLUME 94 fl (80-97); MONOCYTES % (AUTO) 6.2 % (3-13); PLATELET COUNT 202 10^3/uL (150-450); RED BLOOD COUNT 4.58 10^6/uL (3.72-5.28); RED CELL DISTRIBUTION WIDTH 11.9 % (11.5-14.0); SEGMENTED NEUTROPHILS % (AUTO) 75.9 % (42-78); TOTAL CELLS COUNTED % (AUTO) 100 %; WHITE BLOOD COUNT 8.4 10^3/uL (4.0-10.5)
[2019-01-14 13:47] LABS: INTERNATIONAL RATION (INR) 0.89; PROTHROMBIN TIME 12.5 SEC (11.4-15.4)
[2019-01-14 14:04] LABS: ANION GAP 10 (5-19); BLOOD UREA NITROGEN 18 mg/dL (7-20); CARBON DIOXIDE 26 mmol/L (22-30); CHLORIDE 103 mmol/L (98-107); GLUCOSE 97 mg/dL (75-110); POTASSIUM 4.5 mmol/L (3.6-5.0)
--- NOTE | 2019-01-14 16:30 | ER Document Report ---
Entered by MIREYA HORTON SCRIBE 01/14/19 1213 Acting as scribe for:VLADIMIR BOLES DO ED General - General Chief Complaint: Other Stated Complaint: HEAD PRESSURE Time Seen by Provider: 01/14/19 09:10 Primary Care Provider: RACHEAL PALOMO MD [NO LOCAL MD] - Follow up as needed Mode of Arrival: Ambulatory Information source: Patient Notes: 28-year-old female that presents to the emergency department today for "neurosyphillis treatment". Patient states she was diagnosed with neurosyphillis by [facility], and treated with doxycycline secondary to a possible amoxicillin allergy. Patient was seen by [facility] for this, had an LP performed which was negative although it was felt it could have been a false negative because the patient could have been partially treated due to the doxycycline. Patient was then allergy tested back here in [place] and was found to have no penicillin allergy after all and was able to tolerate oral penicillin challenge. Patient states she is here to have a PICC line placed for penicillin treatment. Patient has some facial numbness as well as upper back stiffness as well as some neck stiffness, denies any new symptoms. States they are the same as they have always been. Patient denies any fevers. TRAVEL OUTSIDE OF THE [place].S[place] IN LAST 30 DAYS: No - Related Data Allergies/Adverse Reactions: amoxicillin [Amoxicillin] Allergy (Mild, Verified 01/14/19 09:03) Rash Past Medical History - General Information source: Patient - Social History Smoking Status: Never Smoker Cigarette use (# per day): No Chew tobacco use (# tins/day): No Frequency of alcohol use: None Drug Abuse: None Lives with: Family Family History: Other - Father has DVT Patient has suicidal ideation: No Patient has homicidal ideation: No Endocrine Medical History: Reports: Hx Hypothyroidism Past Surgical History: Reports: Hx Breast Surgery, Hx Kidney (Renal Surgery), Hx Orthopedic Surgery - Jaw, Hx Tonsillectomy - Immunizations Hx Diphtheria, Pertussis, Tetanus Vaccination: Yes Review of Systems - Review of Systems Constitutional: No symptoms reported EENT: No symptoms reported Cardiovascular: No symptoms reported Respiratory: No symptoms reported Gastrointestinal: No symptoms reported Genitourinary: No symptoms reported Female Genitourinary: No symptoms reported Musculoskeletal: See HPI, Back pain - upper Skin: No symptoms reported Hematologic/Lymphatic: No symptoms reported Neurological/Psychological: See HPI, Other - facial numbness -: Yes All other systems reviewed and negative Physical Exam - Vital signs Vitals: Temp Pulse Resp BP Pulse Ox 98.5 F 93 18 129/84 H 98 01/14/19 08:33 01/14/19 08:33 01/14/19 08:33 01/14/19 08:33 01/14/19 08:33 Interpretation: Normal - Notes Notes: PHYSICAL EXAM GENERAL: Alert, interacts well. No acute distress. HEAD: Normocephalic, atraumatic. EYES: Pupils equal, round, and reactive to light. Extraocular movements intact. ENT: Oral mucosa moist, tongue midline. NECK: Full range of motion. Supple. Trachea midline. LUNGS: Clear to auscultation bilaterally, no wheezes, rales, or rhonchi. No resp iratory distress. HEART: Regular rate and rhythm. No murmurs, gallops, or rubs. ABDOMEN: Soft, non-tender. Non-distended. Bowel sounds present in all 4 quadrants. No guarding, rigidity, or rebound. EXTREMITIES: Moves all 4 extremities spontaneously. No edema, radial and dorsalis pedis pulses 2/4 bilaterally. No cyanosis. NEUROLOGICAL: Alert and oriented x3. Normal speech. PSYCH: Normal affect, normal mood. SKIN: Warm, dry, normal turgor. No rashes or lesions noted. Course - Re-evaluation Re-evalutation: 01/14/19 16:33 CBC unremarkable, coags normal, BMP unremarkable, test pending. I did attempt to arrange outpatient treatment for this patient however after receiving approval from Dr. clarke the resident caring for the patient at [facility] who passed a message through Stefanie from Dr. Cardoza office that the patient may certainly use IM penicillin I contacted her pharmacy and found out that we actually do not have any IM procaine penicillin which is the type you need to treat neurosyphilis. This is been on national back order to for several years apparently patient must then receive IV aqueous penicillin G. I can certainly start this treatment in the emergency department however the patient is unable to receive a PIC team as the PIC team has already left for the day. We have attempted to arrange treatment for the patient does not outpatient through [facility] her primary care provider's office however the primary care provider states that they feel the order should be written by [facility]. It is now after normal business hours and we are unable to reach [facility] to arrange outpatient treatment for her neurosyphilis so the patient will be admitted as an observation overnight to Dr. Alonso's service where we will start her on penicillin G and have a PICC line placed and then she will be discharged to home with home health follow-up for daily aqueous penicillin G infusions. - Vital Signs Vital signs: Temp Pulse Resp BP Pulse Ox 98.5 F 93 18 129/84 H 98 01/14/19 08:33 01/14/19 08:33 01/14/19 08:33 01/14/19 08:33 01/14/19 08:33 - Laboratory Result Diagrams: 01/14/19 13:15 01/14/19 13:15 Discharge - Discharge Clinical Impression: Neurosyphilis in adult Condition: Stable Disposition: ADMITTED OBSERVATION Admitting Provider: Celeste (Hospitalist) Unit Admitted: Medical Floor Referrals: RACHEAL PALOMO MD [NO LOCAL MD] - Follow up as needed I personally performed the services described in the documentation, reviewed and edited the documentation which was dictated to the scribe in my presence, and it accurately records my words and actions.
[2019-01-14] MEDS ORDERED: ACETAMINOPHEN 325 MG TABLET PO PRN (17:03)
[2019-01-14] MEDS ORDERED: PENICILLIN G-K 5 MILLION UNIT VIAL IV SCH (17:15)
--- NOTE | 2019-01-14 18:23 | PDOC H&P ---
History of Present Illness Patient complains of: chronic headache History of Present Illness: BRISA SANCHEZ is a 28 year old female with a past medical history of hypothyroidism and recently diagnosed neurosyphilis who was sent by her PCP from [facility] for IV penicillin therapy for neurosyphilis recommended by [facility]. Please see medical records from [facility] and [facility] for further details. In summary, patient has had chronic headache, facial numbness and dizziness since May 2018. She has had multiple work-up and extensive STD work-up as well. These were initially unrevealing. Patient was further referred to [facility]. She underwent further testing including multiple serologies and lumbar tap for CSF analysis. Patient was eventually diagnosed to have neurosyphilis 3 weeks ago. [facility] recommended to PCP that she will need penicillin G therapy for 14 days hence was sent to the ER by PCP. She had a history of amoxicillin allergy. Hence she was referred to allergy clinic for a penicillin challenge. See details of penicillin allergy testing on chart. Appears patient did get a full dose/strength of penicillin and did not have any allergic manifestation. Upon encounter, she is comfortable and denies any acute complaints. Past Medical History Cardiac Medical History: Denies: Coronary Artery Disease, Myocardial Infarction, Hypertension Pulmonary Medical History: Denies: Asthma, Bronchitis, Chronic Obstructive Pulmonary Disease (COPD), Pneumonia Neurological Medical History: Denies: Seizures Endocrine Medical History: Reports: Hypothyroidism Musculoskeltal Medical History: Denies: Arthritis Hematology: Denies: Anemia Past Surgical History Past Surgical History: Reports: Orthopedic Surgery - Jaw, Tonsillectomy Social History Lives with: Family Smoking Status: Never Smoker Family History Family History: Other - Father has DVT Parental Family History Reviewed: Yes - No premature CAD Children Family History Reviewed: No Sibling(s) Family History Reviewed.: No Medication/Allergy Home Medications: Thyroid,Pork [Nature-Throid] 16.25 mg PO DAILY 01/14/19 Thyroid,Pork [Nature-Throid] 65 mg PO DAILY 01/14/19 Allergies/Adverse Reactions: amoxicillin [Amoxicillin] Allergy (Mild, Verified 01/14/19 09:03) Rash Review of Systems All systems: reviewed and no additional remarkable complaints except as stated - As mentioned in HPI Physical Exam Vital Signs: Temp Pulse Resp BP Pulse Ox 98.5 F 93 18 129/84 H 98 01/14/19 08:33 01/14/19 08:33 01/14/19 08:33 01/14/19 08:33 01/14/19 08:33 Intake & Output 01/13/19 01/14/19 01/15/19 06:59 06:59 06:59 Weight 156 lb 11.979 oz General appearance: PRESENT: no acute distress, well-developed, well-nourished Head exam: PRESENT: atraumatic, normocephalic Eye exam: PRESENT: conjunctiva pink, EOMI, PERRLA. ABSENT: scleral icterus Ear exam: PRESENT: normal external ear exam Mouth exam: PRESENT: moist, tongue midline Neck exam: ABSENT: carotid bruit, JVD, lymphadenopathy, thyromegaly Respiratory exam: PRESENT: clear to auscultation jorge. ABSENT: rales, rhonchi, wheezes Cardiovascular exam: PRESENT: RRR. ABSENT: diastolic murmur, rubs, systolic murmur Pulses: PRESENT: normal dorsalis pedis pul GI/Abdominal exam: PRESENT: normal bowel sounds, soft. ABSENT: distended, guarding, mass, organolmegaly, rebound, tenderness Rectal exam: PRESENT: deferred Extremities exam: PRESENT: full ROM. ABSENT: calf tenderness, clubbing, pedal edema Neurological exam: PRESENT: alert, awake, oriented to person, oriented to place, oriented to time, oriented to situation, CN II-XII grossly intact. ABSENT: motor sensory deficit Results Laboratory Results: 01/14/19 13:15 01/14/19 13:15 01/14/19 01/14/19 01/14/19 13:15 13:15 15:15 WBC 8.4 RBC 4.58 Hgb 14.8 Hct 42.9 MCV 94 MCH 32.4 MCHC 34.5 RDW 11.9 Plt Count 202 Seg Neutrophils % 75.9 Lymphocytes % 16.6 Monocytes % 6.2 Eosinophils % 0.9 Basophils % 0.4 Absolute Neutrophils 6.4 Absolute Lymphocytes 1.4 Absolute Monocytes 0.5 Absolute Eosinophils 0.1 Absolute Basophils 0.0 Sodium 139.0 Potassium 4.5 Chloride 103 Carbon Dioxide 26 Anion Gap 10 BUN 18 Creatinine 0.78 Est GFR ( Amer) > 60 Est GFR (Non-Af Amer) > 60 Glucose 97 Calcium 10.0 Serum HCG, Qual NEGATIVE Assessment and Plan - Diagnosis (1) Neurosyphilis in adult Is this a current diagnosis for this admission?: Yes Plan: Start penicillin G. Will order for a PICC line as patient can be discharge tomorrow she can continue IV penicillin at home for a total 14 days. Discharge planning consulted. (2) Hypothyroidism Is this a current diagnosis for this admission?: Yes - Time Time Spent with patient: 25-34 minutes
[2019-01-14] MEDS: WATER IV SCH (20:23)
[2019-01-14] MEDS: DEXTROSE 5% IV SCH (20:23)
[2019-01-14] MEDS: PENICILLIN POTASSIUM IV SCH (20:23)
[2019-01-15] MEDS: DEXTROSE 5% IV SCH ×7 (00:49→23:32)
[2019-01-15] MEDS: WATER IV SCH ×7 (00:49→23:32)
[2019-01-15] MEDS: PENICILLIN POTASSIUM IV SCH ×7 (00:49→23:32)
--- NOTE | 2019-01-15 16:38 | PDOC PROGRESS REPORT ---
Subjective Progress Note for:: 01/15/19 Subjective:: BRISA SANCHEZ is a 28 year old female with a past medical history of hypothyroidism and recently diagnosed neurosyphilis who was sent by her PCP from [facility] for IV penicillin therapy for neurosyphilis recommended by [facility]. No acute event overnight. She was started on IV penicillin yesterday with no any untoward or allergic reaction. She denies any acute complaint. Patient for placement. Will be radiology, was unsuccessful. Patient was also restless during attempt to put in a PICC line. Radiology will reattempt tomorrow morning with some mild sedation. Reason For Visit: NEUROSYPHILIS Physical Exam Vital Signs: Temp Pulse Resp BP Pulse Ox 98.7 F 73 17 138/83 H 100 01/15/19 15:40 01/15/19 15:40 01/15/19 15:40 01/15/19 15:40 01/15/19 15:40 Intake & Output 01/14/19 01/15/19 01/16/19 06:59 06:59 06:59 Intake Total 650 830 Balance 650 830 Weight 147 lb 14.883 oz General appearance: PRESENT: no acute distress, well-developed, well-nourished Head exam: PRESENT: atraumatic, normocephalic Eye exam: PRESENT: conjunctiva pink, EOMI, PERRLA. ABSENT: scleral icterus Ear exam: PRESENT: normal external ear exam Mouth exam: PRESENT: moist, tongue midline Neck exam: ABSENT: carotid bruit, JVD, lymphadenopathy, thyromegaly Respiratory exam: PRESENT: clear to auscultation jorge. ABSENT: rales, rhonchi, wheezes Cardiovascular exam: PRESENT: RRR. ABSENT: diastolic murmur, rubs, systolic murmur Pulses: PRESENT: normal dorsalis pedis pul Vascular exam: PRESENT: normal capillary refill GI/Abdominal exam: PRESENT: normal bowel sounds, soft. ABSENT: distended, guarding, mass, organolmegaly, rebound, tenderness Rectal exam: PRESENT: deferred Extremities exam: PRESENT: full ROM. ABSENT: calf tenderness, clubbing, pedal edema Neurological exam: PRESENT: alert, awake, oriented to person, oriented to place, oriented to time, oriented to situation, CN II-XII grossly intact. ABSENT: motor sensory deficit Results Laboratory Results: 01/14/19 13:15 01/14/19 13:15 01/14/19 15:15 Serum HCG, Qual NEGATIVE Assessment and Plan - Diagnosis (1) Neurosyphilis in adult Is this a current diagnosis for this admission?: Yes Plan: Continue IV penicillin. Will be discharged home on IV penicillin for 13 more days once PICC line is successfully placed. (2) Hypothyroidism Is this a current diagnosis for this admission?: Yes Plan: Resume home medication. - Time Time Spent with patient: 15-24 minutes
[2019-01-15] MEDS: IBUPROFEN 400 MG TABLET PO PRN (18:31)
[2019-01-16] MEDS: DEXTROSE 5% IV SCH ×4 (00:27→12:54)
[2019-01-16] MEDS: WATER IV SCH ×4 (00:27→12:54)
[2019-01-16] MEDS: PENICILLIN POTASSIUM IV SCH ×4 (00:27→12:54)
[2019-01-16] MEDS ORDERED: DIAZEPAM 5 MG TABLET ONE (09:29)
[2019-01-16] MEDS ORDERED: DIAZEPAM 5 MG TABLET PO PRN (09:45)
--- NOTE | 2019-01-16 11:38 | RADIOLOGY REPORT (SQ) ---
EXAM DESCRIPTION: PICC INSERTION; U/S GUIDE FOR VASCULAR ACCESS; FLUORO/CV PLACEMENT COMPLETED DATE/TIME: 01/16/2019 11:22 am REASON FOR STUDY: taper printed circuit layout antibiotics; IV ABX COMPARISON: None. FLUOROSCOPY TIME: 2 minutes 21 seconds 1 ultrasound and 1 digital fluoroscopic images saved to PACS. TECHNIQUE: Fluoroscopic and ultrasound guided PICC placement. LIMITATIONS: None. PROCEDURE: After written consent and assessment were obtained, the patient was brought into the fluo roscopy room and placed supine on the table. Ultrasound evaluation of potential access sites were per formed. After successfully identifying a patent right basilic vein, the right arm was prepped and noman ped in a sterile fashion along with the ultrasound probe. The entry site was anesthetized with 1% lid ocaine. A 21 gauge 7 cm needle was advanced through the skin and into the basilic vein under live ult rasound guidance. An ultrasound image was saved to PACS confirming access site. A .018 guide wire/G lidewire was then inserted through the needle and into the venous system. The needle was then removed and an 11 blade scalpel was used to make a 1cm skin incision. A 5 fr peel-away sheath was advanced over the wire and into the venous system. A measurement was then made using the existing wire and dank e fluoroscopic guidance. The wire was then removed and trimmed. The PICC was advanced through the pee l-away sheath and into the venous system. The peel-away sheath was removed and the catheter was adher ed to the patients arm with a stat lock. The catheter was then aspirated and flushed and a sterile ba ndage was placed over the access site. A fluoroscopic spot image was saved to PACS confirming the ca theter tip within the superior vena cava. IMPRESSION: SUCCESSFUL PLACEMENT OF A 5 FR DUAL LUMEN 33 CM PICC IN THE RIGHT BASILIC VEIN. COMMENT: Patient medication list reviewed: Yes- Quality ID# 130:Eligible professional attests to doc umenting in the medical record they obtained, updated, or reviewed the patient's current medications. . Quality ID 145: Final reports for procedures using fluoroscopy that document radiation exposure augie lobo, or exposure time and number of fluorographic images (if radiation exposure indices are not avail able) Quality ID #76: The patient was prepped and draped using maximum sterile barrier technique including cap, mask, sterile gown, sterile gloves, a large sterile sheet, hand hygiene, and 2% Chlorhexidine fo r cutaneous antisepsis. When ultrasound is used, sterile ultrasound techniques are followed requiring sterile gel and sterile probes. TECHNICAL DOCUMENTATION: JOB ID: [id number] [employer]- All Rights Reserved rev-12/13 Reading location - IP/workstation name: [email or web address]
[2019-01-16] MEDS ORDERED: NORMAL SALINE 10 ML SDV (AFTER EACH USE) IV PRN (12:00)
[2019-01-16] MEDS: IBUPROFEN 400 MG TABLET PO PRN (12:53)
[2019-01-16 14:32] VITALS: BP 138/83
--- NOTE | 2019-01-16 16:45 | PDOC PROGRESS REPORT ---
Subjective Progress Note for:: 01/16/19 Subjective:: BRISA SANCHEZ is a 28 year old female with a past medical history of hypothyroidism and recently diagnosed neurosyphilis who was sent by her PCP from [facility] for IV penicillin therapy for neurosyphilis recommended by [place] [facility]. 01/15: She was started on IV penicillin yesterday with no any untoward or allergic reaction. She denies any acute complaint. Patient for placement. Will be radiology, was unsuccessful. Patient was also restless during attempt t o put in a PICC line. Radiology will reattempt tomorrow morning with some mild sedation. 01/16: No acute event overnight. Denies acute complaints. Patient will be discharged when PICC line is placed successfully and once home health is set up for home IV antibiotics. Reason For Visit: NEUROSYPHILIS Physical Exam Vital Signs: Temp Pulse Resp BP Pulse Ox 98.2 F 75 20 138/83 H 100 01/16/19 14:28 01/16/19 14:28 01/16/19 14:28 01/16/19 14:28 01/16/19 14:28 Intake & Output 01/15/19 01/16/19 01/17/19 06:59 06:59 06:59 Intake Total 650 1320 Balance 650 1320 Weight 147 lb 14.883 oz 148 lb 2.41 oz General appearance: PRESENT: no acute distress, well-developed, well-nourished Head exam: PRESENT: atraumatic, normocephalic Eye exam: PRESENT: conjunctiva pink, EOMI, PERRLA. ABSENT: scleral icterus Ear exam: PRESENT: normal external ear exam Mouth exam: PRESENT: moist, tongue midline Neck exam: ABSENT: carotid bruit, JVD, lymphadenopathy, thyromegaly Respiratory exam: PRESENT: clear to auscultation jorge. ABSENT: rales, rhonchi, wheezes Cardiovascular exam: PRESENT: RRR. ABSENT: diastolic murmur, rubs, systolic murmur Pulses: PRESENT: normal dorsalis pedis pul GI/Abdominal exam: PRESENT: normal bowel sounds, soft. ABSENT: distended, guarding, mass, organolmegaly, rebound, tenderness Rectal exam: PRESENT: deferred Neurological exam: PRESENT: alert, awake, oriented to person, oriented to place, oriented to time, oriented to situation, CN II-XII grossly intact. ABSENT: motor sensory deficit Results Laboratory Results: 01/14/19 13:15 01/14/19 13:15 Impressions: Guidance Fluoroscopy 01/16/19 00:00 IMPRESSION: SUCCESSFUL PLACEMENT OF A 5 FR DUAL LUMEN 33 CM PICC IN THE RIGHT BASILIC VEIN. Interventional Vascular Procedure 01/16/19 00:00 IMPRESSION: SUCCESSFUL PLACEMENT OF A 5 FR DUAL LUMEN 33 CM PICC IN THE RIGHT BASILIC VEIN. PICC Line Insertion 01/16/19 07:00 IMPRESSION: SUCCESSFUL PLACEMENT OF A 5 FR DUAL LUMEN 33 CM PICC IN THE RIGHT BASILIC VEIN. Assessment and Plan - Diagnosis (1) Neurosyphilis in adult Is this a current diagnosis for this admission?: Yes Plan: 01/15: Continue IV penicillin. Will be discharged home on IV penicillin for 13 more days once PICC line is successfully placed. 01/16: Patient will be discharged when PICC line is placed successfully and once home health is set up for home IV antibiotics. (2) Hypothyroidism Is this a current diagnosis for this admission?: Yes Plan: Resume home medication. - Time Time Spent with patient: 15-24 minutes
--- NOTE | 2019-01-16 18:05 | PDOC DISCHARGE SUMMARY ---
General - Admit/Disc Date/PCP Admission Date/Primary Care Provider: 01/14/19 17:09 Discharge Date: 01/16/19 - Discharge Diagnosis (1) Neurosyphilis in adult Is this a current diagnosis for this admission?: Yes (2) Hypothyroidism Is this a current diagnosis for this admission?: Yes - Additional Information Resuscitation Status: Full Code Discharge Diet: Regular Discharge Activity: Activity As Tolerated, Balance Activity w/Rest Home Medications: Thyroid,Pork [Nature-Throid] 16.25 mg PO DAILY 01/14/19 Thyroid,Pork [Nature-Throid] 65 mg PO DAILY 01/14/19 Penicillin G Potassium [Pfizerpen Inj 5 Million Unit Vial] 4,000,000 unit IV Q4A 13 Days #78 vial 01/15/19 History of Present Illness History of Present Illness: BRISA SANCHEZ is a 28 year old female with a past medical history of hypothyroidism and recently diagnosed neurosyphilis who was sent by her PCP from [facility] for IV penicillin therapy for neurosyphilis recommended by [place] [facility]. Please see medical records from [facility] and [place] [facility] for further details. In summary, patient has had chronic headache, facial numbness and dizziness since May 2018. She has had multiple work-up and extensive STD work-up as well. These were initially unrevealing. Patient was further referred to [place] [facility]. She underwent further testing including multiple serologies and lumbar tap for CSF analysis. Patient was eventually diagnosed to have neurosyphilis 3 weeks ago. [place] [facility] recommended to PCP that she will need penicillin G therapy for 14 days hence was sent to the ER by PCP. She had a history of amoxicillin allergy. Hence she was referred to allergy clinic for a penicillin challenge. See details of penicillin allergy testing on chart. Appears patient did get a full dose/strength of penicillin and did not have any allergic manifestation. Upon encounter, she is comfortable and denies any acute complaints. Hospital Course Hospital Course: BRISA SANCHEZ is a 28 year old female with a past medical history of hypothyroidism and recently diagnosed neurosyphilis who was sent by her PCP from [facility] for IV penicillin therapy for neurosyphilis recommended by [place] [facility]. 01/15: She was started on IV penicillin yesterday with no any untoward or allerg ic reaction. She denies any acute complaint. Patient for placement. Will be radiology, was unsuccessful. Patient was also restless during attempt to put in a PICC line. Radiology will reattempt tomorrow morning with some mild sedation. 01/16: Denies acute complaints. Patient will be discharged when PICC line is placed successfully and once home health is set up for home IV antibiotics. Patient will be discharged on home IV Penicillin. She will complete a total of 14 days of therapy. Discussed with her PCP, WILLIAM Simmons over phone who will closely follow up with patient. Physical Exam Vital Signs: Temp Pulse Resp BP Pulse Ox 98.2 F 75 20 138/83 H 100 01/16/19 14:28 01/16/19 14:28 01/16/19 14:28 01/16/19 14:28 01/16/19 14:28 Intake & Output 01/15/19 01/16/19 01/17/19 06:59 06:59 06:59 Intake Total 650 1320 Balance 650 1320 Weight 147 lb 14.883 oz 148 lb 2.41 oz General appearance: PRESENT: no acute distress, well-developed, well-nourished Head exam: PRESENT: atraumatic, normocephalic Eye exam: PRESENT: conjunctiva pink, EOMI, PERRLA. ABSENT: scleral icterus Ear exam: PRESENT: normal external ear exam Mouth exam: PRESENT: moist, tongue midline Neck exam: ABSENT: carotid bruit, JVD, lymphadenopathy, thyromegaly Respiratory exam: PRESENT: clear to auscultation jorge. ABSENT: rales, rhonchi, wheezes Cardiovascular exam: PRESENT: RRR. ABSENT: diastolic murmur, rubs, systolic murmur Pulses: PRESENT: normal dorsalis pedis pul GI/Abdominal exam: PRESENT: normal bowel sounds, soft. ABSENT: distended, guarding, mass, organolmegaly, rebound, tenderness Rectal exam: PRESENT: deferred Extremities exam: PRESENT: full ROM. ABSENT: calf tenderness, clubbing, pedal edema Neurological exam: PRESENT: alert, awake, oriented to person, oriented to place, oriented to time, oriented to situation, CN II-XII grossly intact. ABSENT: motor sensory deficit Results Laboratory Results: 01/14/19 13:15 01/14/19 13:15 Impressions: Guidance Fluoroscopy 01/16/19 00:00 IMPRESSION: SUCCESSFUL PLACEMENT OF A 5 FR DUAL LUMEN 33 CM PICC IN THE RIGHT BASILIC VEIN. Interventional Vascular Procedure 01/16/19 00:00 IMPRESSION: SUCCESSFUL PLACEMENT OF A 5 FR DUAL LUMEN 33 CM PICC IN THE RIGHT BASILIC VEIN. PICC Line Insertion 01/16/19 07:00 IMPRESSION: SUCCESSFUL PLACEMENT OF A 5 FR DUAL LUMEN 33 CM PICC IN THE RIGHT BASILIC VEIN. Qualifiers - * PATIENT BEING DISCHARGED WITH ANY OF THE FOLLOWING DIAGNOSIS: No Acute Heart Failure - Is this a Heart Failure Patient?: No LVEF < 40%?: No- if no continue to question #3 3. Anticoagulant therapy for permanect/persistent/paraoxysmal Afib or Aflutter: N/A
[2019-01-16] MEDS ORDERED: NORMAL SALINE 10 ML SDV (SCHEDULED) IV SCH (22:00)
== END 2019-01-16 14:26 | disposition home or self-care (01) ==
LOC: ER 08:24 → EH 17:09 → 2N 18:59
PROVIDERS: ADMIT Internal Medicine; ATTEND Internal Medicine
PROC: 02HV33Z Insertion of Infusion Device into Superior Vena Cava, Percutaneous Approach (ICD-10-PCS; principal; 2019-01-16)
DX: A52.3 Neurosyphilis, unspecified (principal); E03.9 Hypothyroidism, unspecified; M54.9 Dorsalgia, unspecified; R42 Dizziness and giddiness; R45.1 Restlessness and agitation; I73.9 Peripheral vascular disease, unspecified; Z88.1 Allergy status to other antibiotic agents; Z88.0 Allergy status to penicillin; Z79.899 Other long term (current) drug therapy
CPT/HCPCS: 36569 ×2; 36573; 99284; 36415; 84703; 85025; 85610; 85730; 80048; 77001; 76937; G0378 ×4; C1769; J3490 ×5; J2540 ×3; J7060 ×3; J1642 ×2